=== PATIENT | male | born 1965 | race Two or more races ===

== ENCOUNTER → 2017-01-04 | Outpatient (CLI) | payer MEDICAID ==
[2017-01-04 10:36] LABS: CHLORIDE,CL 108 mmol/L (98-110); SODIUM,NA 139 mmol/L (136-146)
== END ==
LOC: MW.CHRC 09:45
PROVIDERS: ATTEND Family Medicine
DX: M25.511 Pain in right shoulder (principal)
CPT/HCPCS: 36415; 80053

== ENCOUNTER → 2017-01-07 | Outpatient (CLI) | payer MEDICAID ==
--- NOTE | 2017-01-07 12:24 | CR ---
EXAMINATION: Right knee HISTORY: Pain COMPARISON: None TECHNIQUE: 4 views of the right knee FINDINGS: There is likely an old fracture deformity of the right tibial plateau. There is resulting moderate joint space narrowing within the medial compartment with subchondral sclerosis, cystic hill ge, and early osteophyte formation. Degenerative changes and osteophytes are also noted within the p atellofemoral compartment. No joint effusion. Bone mineralization is otherwise normal. IMPRESSION: 1. Moderate joint space narrowing within the medial compartment. 2. Chronic healed fracture deformity of the tibial plateau.
--- NOTE | 2017-01-07 12:30 | CR ---
EXAMINATION: Right shoulder HISTORY: Pain COMPARISON: MRI dated 08/30/2016 TECHNIQUE: 3 views FINDINGS: Advanced osteoarthritic changes are noted within the right glenohumeral joint with signifi cant joint space narrowing, hypertrophic osteophyte formation, and subchondral cystic change. Mild a cromioclavicular joint osteoarthritic changes are also noted. No fracture or acute osseous abnormali ty. IMPRESSION: Severe osteoarthritic changes noted within the right glenohumeral joint.
== END ==
LOC: MW.CHORTHO 08:06
PROVIDERS: ATTEND Physician Assistant
DX: M25.511 Pain in right shoulder (principal); M25.561 Pain in right knee; M19.011 Primary osteoarthritis, right shoulder; M25.861 Other specified joint disorders, right knee
CPT/HCPCS: 73030-26-RT; 73030-RT; 73564-26-RT; 73564-RT

== ENCOUNTER 2017-11-03 14:06 | Emergency (ER) | payer MEDICAID ==
[2017-11-03 15:25] VITALS: BP 126/93
[2017-11-03] MEDS ORDERED: Albuterol/Ipratropium 3.0-0.5 MG/3 ML Neb Soln NEB ONE (16:08)
[2017-11-03] MEDS ORDERED: Ketorolac 60 MG/2 ML SDV IM ONE (16:09)
--- NOTE | 2017-11-03 16:45 | EDM.PDOC ---
ED HPI GENERAL MEDICAL PROBLEM - General Chief Complaint: General Stated Complaint: BAD COUGH, THROAT HURTS AND RT SHOULDER HURTS Time Seen by Provider: 11/03/17 16:02 Source of Information: Reports: Patient History Limitations: Reports: No Limitations - History of Present Illness INITIAL COMMENTS - FREE TEXT/NARRATIVE: HISTORY AND PHYSICAL: History of present illness: [Patient comes to the emergency room complaining of cough and wheezing for the past few days. He has followed up with his primary care provider in the past couple of days and is not feeling improved. He continues to complain of right shoulder pain following an alleged arrest in [place]. He's been taking Tylenol and ibuprofen as needed for shoulder discomfort but has had the best improvement with Toradol injections. He last had one a couple of days ago. No fever or chills, no body aches runny nose sore throat or earaches. Abdominal pain nausea or vomiting. States his appetite is good.] Review of systems: As per history of present illness and below otherwise all systems reviewed and negative. Past medical history: As per history of present illness and as reviewed below otherwise noncontributory. Surgical history: As per history of present illness and as reviewed below otherwise noncontributory. Social history: No reported history of drug or alcohol abuse. Family history: As per history of present illness and as reviewed below otherwise noncontributory. Physical exam: HEENT: Atraumatic, normocephalic. TMs are pearly muller without erythema. Oral mucous membranes are pink and moist. Tonsillar swelling erythema or exudate., Neck is supple. No lymphadenopathy. Lungs: Clear to auscultation, breath sounds equal bilaterally, but lungs sound tight. Heart: S1S2, regular rate and rhythm. Abdomen: Soft, nondistended, nontender. Genitourinary: Deferred. Rectal: Deferred. Extremities: Atraumatic, ambulatory without deficit. Neurovascular unremarkable. Neuro: Awake, alert, oriented. Motor and sensory unremarkable throughout. Exam nonfocal. Therapeutics: [DuoNeb, Toradol 60 mg IM] Impression: [Cough Right shoulder pain] Plan: [Patient is able to breathe much deeper following DuoNeb treatment, and he is feeling improved. Toradol 60 mg given in ER. Follow-up with PCP. Patient in agreement with today's plan.] Definitive disposition and diagnosis as appropriate pending reevaluation and review of above. Bilateral Shoulder Pain Score (Numeric/FACES): 10 Bilateral Feet Pain Score (Numeric/FACES): 10 - Related Data Allergies Allergy/AdvReac Type Severity Reaction Status Date / Time No Known Allergies Allergy Verified 11/03/17 15:25 Home Meds: Home Meds Albuterol [Proventil HFA] 2 puff INH Q4H PRN 02/28/16 [History] Insulin Aspart [NovoLOG] 15 unit SUBCUT TIDAC 02/28/16 [History] metFORMIN [Glucophage] 1,000 mg PO BID 02/28/16 [History] Gabapentin [Neurontin] 1,200 mg PO BID 06/23/17 [History] Meloxicam [Mobic] 15 mg PO DAILY 06/23/17 [History] Ramipril [Altace] 1.25 mg PO BEDTIME 06/23/17 [History] oxyCODONE 5 mg PO Q4H PRN 06/23/17 [History] Insulin Glarg,Human.Rec.Analog [Lantus] 52 units SQ BEDTIME 11/03/17 [History] Past Medical History HEENT History: Reports: Impaired Vision Cardiovascular History: Reports: High Cholesterol, Hypertension Respiratory History: Reports: Asthma Musculoskeletal History: Reports: Fracture, Osteoarthritis Endocrine/Metabolic History: Reports: Diabetes, Type II, IDDM, Obesity/BMI 30+ - Infectious Disease History Infectious Disease History: Reports: Chicken Pox, Measles, Mumps - Past Surgical History HEENT Surgical History: Reports: Eye Surgery, Other (See Below) Other HEENT Surgeries/Procedures: pt is missing the right eye Musculoskeletal Surgical History: Reports: Arthroscopic Knee, Hip Replacement, Shoulder Surgery Social & Family History - Family History Family Medical History: Noncontributory - Tobacco Use Smoking Status *Q: Never Smoker Years of Tobacco use: 10 Packs/Tins Daily: 0.5 - Caffeine Use Caffeine Use: Reports: Coffee, Soda - Recreational Drug Use Recreational Drug Use: No - Living Situation & Occupation Living situation: Reports: Alone Occupation: Disabled ED ROS GENERAL - Review of Systems Review Of Systems: ROS reveals no pertinent complaints other than HPI. ED EXAM, GENERAL - Physical Exam Exam: See Below Course - Vital Signs Last Recorded V/S: Last Vital Signs Temp 98.1 F 11/03/17 15:22 Pulse 95 11/03/17 15:22 Resp 18 11/03/17 15:22 BP 126/93 H 11/03/17 15:22 Pulse Ox 93 L 11/03/17 15:22 - Orders/Labs/Meds Meds: Medications Discontinued Medications Generic Name Dose Route Start Last Admin Trade Name Ghassan PRN Reason Stop Dose Admin Albuterol/Ipratropium 3 ml 11/03/17 16:08 11/03/17 16:19 Duoneb 3.0-0.5 Mg/3 Ml NEB 11/03/17 16:09 3 ml ONETIME ONE Administration Ketorolac Tromethamine 60 mg 11/03/17 16:09 11/03/17 17:07 Toradol IM 11/03/17 16:10 60 mg ONETIME ONE Administration Departure - Departure Time of Disposition: 16:55 Disposition: Home, Self-Care 01 Condition: Good Clinical Impression: Cough - Discharge Information Instructions: Cough, Adult, [id number] Referrals: Donnie Padron [Primary Care Provider] - Forms: ED Department Discharge Additional Instructions: The following information is given to patients seen in the emergency department who are being discharged to home. This information is to outline your options for follow-up care. We provide all patients seen in our emergency department with a follow-up referral. The need for follow-up, as well as the timing and circumstances, are variable depending upon the specifics of your emergency department visit. If you don't have a primary care physician on staff, we will provide you with a referral. We always advise you to contact your personal physician following an emergency department visit to inform them of the circumstance of the visit and for follow-up with them and/or the need for any referrals to a consulting specialist. The emergency department will also refer you to a specialist when appropriate. This referral assures that you have the opportunity for follow-up care with a specialist. All of these measure are taken in an effort to provide you with optimal care, which includes your follow-up. Under all circumstances we always encourage you to contact your private physician who remains a resource for coordinating your care. When calling for follow-up care, please make the office aware that this follow-up is from your recent emergency room visit. If for any reason you are refused follow-up, please contact the [facility] emergency department at and asked to speak to the emergency department charge nurse. [facility] [address] [place] [id number] Follow-up with your primary care provider at the clinic listed above in the next 48-72 hours. Continue your inhaler and I'll your prescriptions. You may take Robitussin or Delsym cough syrup as needed for cough. Return to ER as needed as discussed.
== END 2017-11-03 17:15 | disposition home or self-care (01) ==
LOC: MW.ED 14:06
DX: R05 Cough (principal); M25.511 Pain in right shoulder; J45.909 Unspecified asthma, uncomplicated; I10 Essential (primary) hypertension; E11.9 Type 2 diabetes mellitus without complications; Z79.4 Long term (current) use of insulin; Z79.899 Other long term (current) drug therapy; Z72.0 Tobacco use
CPT/HCPCS: 94640; 96372; 99283; J1885

== ENCOUNTER 2018-01-11 12:00 | Emergency (ER) | payer MEDICAID ==
[2018-01-11 12:26] VITALS: BP 128/88
--- NOTE | 2018-01-11 12:33 | EDM.PDOC ---
ED HPI GENERAL MEDICAL PROBLEM - General Chief Complaint: Lower Extremity Injury/Pain Stated Complaint: RT KNEE HURTS Time Seen by Provider: 01/11/18 12:28 - History of Present Illness INITIAL COMMENTS - FREE TEXT/NARRATIVE: HISTORY AND PHYSICAL: History of present illness: Patient's a 52-year-old white male with history of polysubstance abuse who presents with concern of right knee pain after he stepped in hole. Patient denies other trauma or concern Review of systems: As per history of present illness and below otherwise all systems reviewed and negative. Past medical history: As per history of present illness and as reviewed below otherwise noncontributory. Surgical history: As per history of present illness and as reviewed below otherwise noncontributory. Social history: No reported history of drug or alcohol abuse. Family history: As per history of present illness and as reviewed below otherwise noncontributory. Physical exam: HEENT: Atraumatic, normocephalic, pupils reactive, negative for conjunctival pallor or scleral icterus, mucous membranes moist, throat clear, neck supple, nontender, trachea midline. Lungs: Clear to auscultation, breath sounds equal bilaterally, chest nontender. Heart: S1S2, regular, negative for clicks, rubs, or JVD. Abdomen: Soft, nondistended, nontender. Negative for masses or hepatosplenomegaly. Negative for costovertebral tenderness. Pelvis: Stable nontender. Genitourinary: Deferred. Rectal: Deferred. Extremities: Right knee with some small swelling no point tenderness crepitation limited range of motion secondary to pain CMS neurovascular exams unremarkable Neuro: Awake, alert, oriented. Cranial nerves II through XII unremarkable. Cerebellum unremarkable. Motor and sensory unremarkable throughout. Exam nonfocal. Diagnostics: Tray right knee Therapeutics: Knee immobilizer cane as directed Impression: #1 acute right knee injury 2 history of polysubstance abuse Definitive disposition and diagnosis as appropriate pending reevaluation and review of above. Right Knee Pain Score (Numeric/FACES): 10 - Related Data Allergies Allergy/AdvReac Type Severity Reaction Status Date / Time No Known Allergies Allergy Verified 01/11/18 12:26 Home Meds: Home Meds Albuterol [Proventil HFA] 2 puff INH Q4H PRN 02/28/16 [History] Insulin Aspart [NovoLOG] 15 unit SUBCUT TIDAC 02/28/16 [History] metFORMIN [Glucophage] 1,000 mg PO BID 02/28/16 [History] Gabapentin [Neurontin] 1,200 mg PO BID 06/23/17 [History] Meloxicam [Mobic] 15 mg PO DAILY 06/23/17 [History] Ramipril [Altace] 1.25 mg PO BEDTIME 06/23/17 [History] oxyCODONE 5 mg PO Q4H PRN 06/23/17 [History] Insulin Glarg,Human.Rec.Analog [Lantus] 52 units SQ BEDTIME 11/03/17 [History] Past Medical History HEENT History: Reports: Impaired Vision Cardiovascular History: Reports: High Cholesterol, Hypertension Respiratory History: Reports: Asthma Musculoskeletal History: Reports: Fracture, Osteoarthritis Endocrine/Metabolic History: Reports: Diabetes, Type II, IDDM, Obesity/BMI 30+ - Infectious Disease History Infectious Disease History: Reports: Chicken Pox, Measles, Mumps - Past Surgical History HEENT Surgical History: Reports: Eye Surgery, Other (See Below) Other HEENT Surgeries/Procedures: pt is missing the right eye Musculoskeletal Surgical History: Reports: Arthroscopic Knee, Hip Replacement, Shoulder Surgery Social & Family History - Family History Family Medical History: Noncontributory - Tobacco Use Smoking Status *Q: Never Smoker Years of Tobacco use: 10 Packs/Tins Daily: 0.5 Second Hand Smoke Exposure: No - Caffeine Use Caffeine Use: Reports: Coffee, Soda - Recreational Drug Use Recreational Drug Use: No - Living Situation & Occupation Living situation: Reports: Alone Occupation: Disabled Review of Systems - Review of Systems Review Of Systems: ROS reveals no pertinent complaints other than HPI. ED EXAM, GENERAL - Physical Exam Exam: See Below (The dictation) Course - Vital Signs Last Recorded V/S: Last Vital Signs Temp 36.8 C 01/11/18 12:24 Pulse 75 01/11/18 12:24 Resp 16 01/11/18 12:24 BP 128/88 01/11/18 12:24 Pulse Ox 98 01/11/18 12:24 Departure - Departure Time of Disposition: 12:32 Disposition: Home, Self-Care 01 Condition: Good Clinical Impression: Knee injury - Discharge Information Referrals: PCP,None [Primary Care Provider] - Additional Instructions: The following information is given to patients seen in the emergency department who are being discharged to home. This information is to outline your options for follow-up care. We provide all patients seen in our emergency department with a follow-up referral. The need for follow-up, as well as the timing and circumstances, are variable depending upon the specifics of your emergency department visit. If you don't have a primary care physician on staff, we will provide you with a referral. We always advise you to contact your personal physician following an emergency department visit to inform them of the circumstance of the visit and for follow-up with them and/or the need for any referrals to a consulting specialist. The emergency department will also refer you to a specialist when appropriate. This referral assures that you have the opportunity for followup care with a specialist. All of these measure are taken in an effort to provide you with optimal care, which includes your followup. Under all circumstances we always encourage you to contact your private physician who remains a resource for coordinating your care. When calling for followup care, please make the office aware that this follow-up is from your recent emergency room visit. If for any reason you are refused follow-up, please contact the [facility] emergency department at and asked to speak to the emergency department charge nurse. Keep follow-up with private orthopedic surgeon as discussed knee immobilizer cane as directed Tylenol as directed return as needed as discussed
--- NOTE | 2018-01-13 10:45 | CR ---
EXAM DATE: 01/11/18 PATIENT'S AGE: 52 Patient: RAFIA MELÉNDEZ Facility: [place], [place] Site . Site : 1965 Study: XRay Knee Right [id number]/[id number] 1:01:59 PM Ordering Physician: Kelli Rogers Final Report: HISTORY: Right knee pain. TECHNIQUE: Three views of the right knee. COMPARISON: No prior. FINDINGS: Patient is status post ACL reconstruction. Tricompartmental degenerative arthrosis of the right knee. Medial joint space compartment appears mildly narrowed on the AP supine radiograph. There are ossified bodies present posteriorly. No acute fracture. No definite suprapatellar joint effusion. IMPRESSION: 1. No acute fracture. 2. Tricompartmental degenerative arthrosis. Ossified joint bodies posteriorly. 3. Prior ACL reconstruction. Dictated by Jones Shin MD @ 01/11/2018 1:15:06 PM Dictated by: Jones Shin MD @ 01/11/2018 13:15:09 (Electronic Signature) Report Signed by Proxy. [facility]PITALSup[facility]
== END 2018-01-11 13:35 | disposition home or self-care (01) ==
LOC: MW.ED 12:00
DX: S89.91XA Unspecified injury of right lower leg, initial encounter (principal); E11.9 Type 2 diabetes mellitus without complications; E78.00 Pure hypercholesterolemia, unspecified; I10 Essential (primary) hypertension; Z79.4 Long term (current) use of insulin; Z79.899 Other long term (current) drug therapy; W18.42XA Slipping, tripping and stumbling without falling due to stepping into hole or opening, initial encounter
CPT/HCPCS: 73562-26-RT; 73562-RT; 99283

== ENCOUNTER 2020-11-03 04:40 | Emergency (ER) | payer MEDICAID ==
[2020-11-03 04:59] VITALS: BP 178/133; PULSE 115
--- NOTE | 2020-11-03 05:04 | EDM.PDOC ---
ED HPI GENERAL MEDICAL PROBLEM - General Chief Complaint: General Stated Complaint: MEDICAL CLEARANCE Time Seen by Provider: 11/03/20 04:55 - History of Present Illness INITIAL COMMENTS - FREE TEXT/NARRATIVE: 55-year-old male with a history of chronic pain diabetes and hypertension presents in police custody for medical clearance. The patient endorses chronic pain in his knee he reports bilateral shoulder pain secondary to handcuffs. He denies any other complaint. He does not have any of his medications with him. He states that he takes many medications every day. However he can only recall Metformin 1000 mg twice daily and Lantus 52 units nightly. - Related Data Allergies Allergy/AdvReac Type Severity Reaction Status Date / Time No Known Allergies Allergy Verified 01/11/18 12:26 Home Meds: Home Meds Insulin Aspart [NovoLOG] See Protocol SUBCUT TIDAC 02/28/16 [History] metFORMIN [Glucophage] 1,000 mg PO BID 02/28/16 [History] Insulin Glarg,Human.Rec.Analog [Lantus] 52 units SQ BEDTIME 11/03/17 [History] Insulin Glarg,Human.Rec.Analog [Lantus] 52 unit SUBCUT BEDTIME 7 Days #1 bottle 11/03/20 [Rx] metFORMIN HCl [Metformin HCl] 1,000 mg PO BID 7 Days #14 tablet 11/03/20 [Rx] Past Medical History HEENT History: Reports: Impaired Vision Cardiovascular History: Reports: High Cholesterol, Hypertension Respiratory History: Reports: Asthma Musculoskeletal History: Reports: Fracture, Osteoarthritis Endocrine/Metabolic History: Reports: Diabetes, Type II, IDDM, Obesity/BMI 30+ - Infectious Disease History Infectious Disease History: Reports: Chicken Pox, Measles, Mumps - Past Surgical History HEENT Surgical History: Reports: Eye Surgery, Other (See Below) Other HEENT Surgeries/Procedures: pt is missing the right eye Musculoskeletal Surgical History: Reports: Arthroscopic Knee, Hip Replacement, Shoulder Surgery Social & Family History - Family History Family Medical History: No Pertinent Family History - Caffeine Use Caffeine Use: Reports: Coffee, Soda - Living Situation & Occupation Living situation: Reports: Alone Occupation: Disabled ED ROS GENERAL - Review of Systems Review Of Systems: See Below Free Text/Narrative/Comment: General: No fever. Neck: No neck stiffness. Respiratory: No shortness of breath. Cardiac: No chest pain. Gastrointestinal: No nausea, vomiting or abdominal pain. Musculoskeletal: Per Per, HPI ED EXAM, GENERAL - Physical Exam Exam: See Below Free Text/Narrative:: General Appearance: No acute distress, appears comfortable Skin: No rash HEENT: Normocephalic/atraumatic, sclera anicteric, mucous membranes moist Neck: Normal range of motion Chest and Lungs: Bilateral breath sounds, clear to auscultation Cardiovascular: Minimally tachycardic rate and regular rhythm, no murmur Abdomen: Soft, non-tender Back: Normal Musculoskeletal: No edema or tenderness Neurologic: Awake, alert, no obvious deficits, moving all extremities Psychiatric: Appropriate, cooperative Course - Vital Signs Last Recorded V/S: Last Vital Signs Temp 97.5 F 11/03/20 04:50 Pulse 115 H 11/03/20 04:50 Resp 18 11/03/20 04:50 BP 178/133 H 11/03/20 04:50 Pulse Ox 98 11/03/20 04:50 Departure - Departure Time of Disposition: 04:59 Disposition: Home, Self-Care 01 Condition: Good Clinical Impression: Diabetes - Discharge Information *PRESCRIPTION DRUG MONITORING PROGRAM REVIEWED*: Not Applicable *COPY OF PRESCRIPTION DRUG MONITORING REPORT IN PATIENT MANJIT: Not Applicable Prescriptions: Insulin Glarg,Human.Rec.Analog [Lantus] 52 unit SUBCUT BEDTIME 7 Days #1 bottle metFORMIN HCl [Metformin HCl] 1,000 mg PO BID 7 Days #14 tablet Instructions: Insulin Treatment for Diabetes Mellitus Forms: ED Department Discharge Additional Instructions: The following information is given to patients seen in the emergency department who are being discharged to home. This information is to outline your options for follow-up care. We provide all patients seen in our emergency department with a follow-up referral. The need for follow-up, as well as the timing and circumstances, are variable depending upon the specifics of your emergency department visit. If you don't have a primary care physician on staff, we will provide you with a referral. We always advise you to contact your personal physician following an emergency department visit to inform them of the circumstance of the visit and for follow-up with them and/or the need for any referrals to a consulting specialist. The emergency department will also refer you to a specialist when appropriate. This referral assures that you have the opportunity for follow-up care with a specialist. All of these measure are taken in an effort to provide you with optimal care, which includes your follow-up. Under all circumstances we always encourage you to contact your private physician who remains a resource for coordinating your care. When calling for follow-up care, please make the office aware that this follow-up is from your recent emergency room visit. If for any reason you are refused follow-up, please contact the [facility] Emergency Department at and asked to speak to the emergency department charge nurse. Sepsis Event Note (ED) - Focused Exam Vital Signs: Vital Signs Temp Pulse Resp BP Pulse Ox 11/03/20 04:50 97.5 F 115 H 18 178/133 H 98 - Assessment/Plan Assessment:: 55-year-old male presenting in police custody for medical clearance. Patient has no acute medical complaints at this time. His physical exam is unremarkable beyond a minimal tachycardia. Nothing to suggest acute infectious process. Though he no doubt takes multiple medications and is only safe for me to fill the medications that he reliably remembers at this time and for this reason prescriptions for the Lantus and Metformin were sent to [facility]. Patient was cleared to return to senior care with recommendation to try and determine his other medications when the pharmacy opens.
== END 2020-11-03 05:15 | disposition home or self-care (01) ==
LOC: MW.ED 04:40
DX: E11.9 Type 2 diabetes mellitus without complications (principal); I10 Essential (primary) hypertension; J45.909 Unspecified asthma, uncomplicated; E66.9 Obesity, unspecified; Z68.28 Body mass index [BMI] 28.0-28.9, adult; Z79.4 Long term (current) use of insulin
CPT/HCPCS: 99282; 99284